=== PATIENT | male | born 1965 | race Caucasian/White ===

== ENCOUNTER 2018-04-13 08:57 | Outpatient (CLI) | payer OTHER ==
[2018-04-13 10:42] LABS: Anion Gap 9 mmol/L (10-20); BUN (Urea Nitrogen) 18 mg/dL (8.4-25.7); Calc. Creatinine Clearance 0 mL/min (70-130); Calcium 8.9 mg/dL (7.8-10.44); Carbon Dioxide 27 mmol/L (22-29); Chloride 105 mmol/L (98-107); Estimated GFR-MDRD 67; Glucose 99 mg/dL (70-105); Sodium 137 mmol/L (136-145)
== END 2018-04-13 08:58 | disposition home or self-care (01) ==
LOC: LABBT 08:57
PROVIDERS: ATTEND Surgery
DX: Z01.818 Encounter for other preprocedural examination (principal); K40.90 Unilateral inguinal hernia, without obstruction or gangrene, not specified as recurrent
CPT/HCPCS: 80048; 93005; 93010

== ENCOUNTER 2018-04-16 05:47 | Day surgery (SDC) | payer OTHER ==
[2018-04-16] MEDS ORDERED: CEFAZOLIN/Water 2 GM/20 ML SYRINGE ONE (06:08)
[2018-04-16] MEDS ORDERED: Bupivacaine/Epinephrine 0.25% 30 ML VIAL ONE (06:44)
[2018-04-16] MEDS ORDERED: Fentanyl 100 MCG/2 ML VIAL ONE ×2 (06:45→09:03)
[2018-04-16] MEDS ORDERED: Midazolam HCl 2 mg/2 ml Vial ONE (07:20)
--- NOTE | 2018-04-16 10:07 | OP ---
DATE OF PROCEDURE: 04/16/2018 PREOPERATIVE DIAGNOSIS: Left inguinal hernia. POSTOPERATIVE DIAGNOSIS: Bilateral inguinal hernia. PROCEDURE: Laparoscopic robotic bilateral inguinal hernia repair with mesh, 3DMax large. SURGEON: Levi Spencer M.D. ANESTHESIA: General. ESTIMATED BLOOD LOSS: Minimal. COMPLICATIONS: None. SPECIMEN: None. FINDINGS: Bilateral indirect inguinal hernia. TECHNIQUE: The patient was taken to the operating room and placed supine on the table. After genera l anesthetic was obtained, the abdomen was shaved, prepped, and draped in a sterile fashion. A Mayorga catheter had been placed. Curved incision made above the umbilicus. Cautery was used to dissect do wn to and score the fascia. Abdominal cavity was entered bluntly using a Heather clamp. An 11 mm ball oon trocar is placed, high flow pneumoperitoneum was obtained. Left and right abdominal 8 mm robot t rocars were placed. The peritoneum was opened in the bilateral groins and the preperitoneal space wa s fully dissected from pubic tubercle medially to anterior iliac crest laterally, iliopectineal line fully exposed. The indirect hernia sacs were dissected off the cord structures high up onto the keegan toneum. A 3DMax large mesh brought into the sterile field and placed into the abdomen through the ca bob port. The end-labeled medial aspect is placed over pubic tubercle medially on both sides. The meshes is laid out to cover the indirect, direct and femoral components. The mesh is sewn medial to the London's ligament and laterally to the posterior fascia using Vicryl suture. No sutures were valdo jorge in the triangle of pain. The peritoneum was reapproximated using running Stratafix on both sides . All needles were removed from the abdomen. All port sites infiltrated using local anesthetic. Al l ports were removed under direct visualization without bleeding. Pneumoperitoneum was let down. PD S was used to close the fascial defect above the umbilicus. All incisions were irrigated and closed using 4-0 Monocryl and Dermabond. The patient went to recovery in stable condition. All instrument counts, needle counts, and lap counts were correct.
[2018-04-16] MEDS ORDERED: HYDROcodone/Acetaminophen 5/325 mg Tablet ONE (10:51)
[2018-04-16] MEDS ORDERED: Tamsulosin HCl 0.4 MG CAP ONE (13:36)
== END 2018-04-16 14:50 | disposition home or self-care (01) ==
LOC: SDC 05:47
PROVIDERS: ATTEND Surgery
PROC: 0YUA4JZ Supplement Bilateral Inguinal Region with Synthetic Substitute, Percutaneous Endoscopic Approach (ICD-10-PCS; principal; 2018-04-16)
PROC: 8E0W4CZ Robotic Assisted Procedure of Trunk Region, Percutaneous Endoscopic Approach (ICD-10-PCS; principal; 2018-04-16)
DX: K40.20 Bilateral inguinal hernia, without obstruction or gangrene, not specified as recurrent (principal); I10 Essential (primary) hypertension; K21.9 Gastro-esophageal reflux disease without esophagitis; Z79.899 Other long term (current) drug therapy
CPT/HCPCS: 51798; C1781; J2250; J3010